=== PATIENT | male | born 1985 | race Caucasian/White ===

== ENCOUNTER 2021-06-14 16:40 | Inpatient (IN) ==
[2021-06-14] MEDS ORDERED: ALPRAZolam 0.5 MG TABLET PO ONE (20:12)
[2021-06-14 21:13] LABS: Basophils % 0.5 % (0.0-0.8); Eosinophils # 0.1 10*3/uL (0.0-0.87); Eosinophils % 1.4 % (0.00-10.9); Hematocrit 34.9 VOL% (42.0-52.0); Hemoglobin 11.6 GM/DL (14.0-18.0); Immature Granulocytes % 0.5 %; Immature Granulocytes Absolute 0.03 #; Lymphocytes # 1.5 10*3/uL (1.4-4.0); Lymphocytes % 26.7 % (21.2-54.2); Mean Corpuscular HGB Conc 33.2 GM/DL (32-36); Mean Corpuscular Volume 88.6 FL (87-102); Mean Platelet Volume 9.8 FL (9.6-12.0); Monocytes % 6.6 % (1.7-12.7); Neutrophils % 64.3 % (38.7-73.9); Platelet Count 278 T/CUMM (130-400); Red Blood Count 3.94 MC/CUMM (3.8-5.5); Red Cell Distribution Width 11.7 % (9.3-17.3); White Blood Count 5.8 T/CUMM (4-12)
[2021-06-14] MEDS ORDERED: VANCOMYCIN INJ 1,000 MG in SODIUM CHLORIDE 0.9% 250 ML IV STA (21:24)
[2021-06-14 21:35] LABS: Alanine Aminotransferase 99 U/L (16-61); Albumin 3.6 G/DL (3.4-5.0); Alkaline Phosphatase 137 U/L (45-117); Aspartate Amino Transferase 80 U/L (0-37); Bilirubin,Total < 0.39 MG/DL (0.20-1.00); Blood Urea Nitrogen 18 MG/DL (7-18); Calcium 9.3 MG/DL (8.5-10.1); Carbon Dioxide 30 MMOL/L (21-32); Estimated Glom Filtration Rate 90 ML/MIN; Glucose 158 MG/DL (74-106); Potassium 3.7 MMOL/L (3.5-5.1); Sodium 136 MMOL/L (136-145); Total Protein 8.7 G/DL (6.4-8.2)
[2021-06-14] MEDS ORDERED: SODIUM CHLORIDE 0.9% 2,000 ML IV STA (21:36)
[2021-06-14] MEDS ORDERED: SODIUM CHLORIDE 0.9% 500 ML IV STA (21:36)
[2021-06-14] MEDS ORDERED: GLUCAGON 1 MG VIAL IM PRN (21:54)
[2021-06-14] MEDS ORDERED: hydrALAZINE 20 MG/1 ML VIAL IV PRN (21:54)
[2021-06-14] MEDS ORDERED: ONDANSETRON 4 MG/2 ML VIAL IV PRN (21:54)
[2021-06-14] MEDS ORDERED: ACETAMINOPHEN 325 MG TABLET PO PRN (21:54)
[2021-06-14] MEDS ORDERED: PIPERACILLIN/TAZOBACTAM 3,375 MG in SODIUM CHLORIDE 0.9% 100 ML IV STA (21:54)
[2021-06-14] MEDS ORDERED: diphenhydrAMINE CAP 25 MG CAPSULE PO PRN (21:54)
[2021-06-14] MEDS ORDERED: DEXTROSE 50% 25 GM/50 ML SYRINGE IV PRN (21:54)
[2021-06-14] MEDS ORDERED: guaiFENesin/DM ER 600-30 MG TABLET PO PRN (21:54)
[2021-06-14] MEDS ORDERED: NICOTINE 21 MG/24 HR PATCH TRANSDERM PRN (21:54)
[2021-06-14] MEDS: SODIUM CHLORIDE 0.9% 1,000 ML IV SCH (23:53)
[2021-06-15] MEDS ORDERED: INSULIN LISPRO 100 UNIT/ML SUBCUT SCH
[2021-06-15] MEDS: ZALEPLON 5 MG CAPSULE PO PRN ×2 (00:38→21:41)
[2021-06-15 01:37] LABS: Basophils % 0.5 % (0.0-0.8); Eosinophils # 0.1 10*3/uL (0.0-0.87); Eosinophils % 1.5 % (0.00-10.9); Immature Granulocytes % 0.5 %; Immature Granulocytes Absolute 0.03 #; Mean Corpuscular HGB Conc 33.4 GM/DL (32-36); Mean Corpuscular Volume 89.1 FL (87-102); Mean Platelet Volume 9.6 FL (9.6-12.0); Monocytes % 6.8 % (1.7-12.7); Neutrophils % 53.7 % (38.7-73.9); Red Blood Count 3.29 MC/CUMM (3.8-5.5); Red Cell Distribution Width 11.7 % (9.3-17.3); White Blood Count 5.5 T/CUMM (4-12)
[2021-06-15 01:38] LABS: Hemoglobin 9.8 GM/DL (14.0-18.0); Platelet Count 191 T/CUMM (130-400)
[2021-06-15 01:39] LABS: Hematocrit 29.3 VOL% (42.0-52.0)
[2021-06-15 01:55] LABS: Calcium 8.2 MG/DL (8.5-10.1); Osmolality,Calculated 277.7 MOS/KG (273-304); Potassium 4.3 MMOL/L (3.5-5.1)
[2021-06-15 03:10] LABS: Hypochromasia 1+; Platelet Estimate Normal; Reactive Lymphocytes 1+
[2021-06-15 04:50] LABS: Atypical Lymphocytes Few; Reactive Lymphocytes 1+
[2021-06-15 04:51] LABS: Anisocytosis 1+; Hypochromasia 1+; Microcytosis 1+; Platelet Estimate Normal
[2021-06-15] MEDS: CLINDAMYCIN INJ 600 MG/50 ML PREMIX IV SCH ×2 (08:18→16:45)
[2021-06-15] MEDS ORDERED: DIAZEPAM 5 MG TABLET PO ONE (08:27)
[2021-06-15] MEDS: MORPHINE 2 MG/1 ML SYRINGE IV PRN ×2 (08:29→17:46)
[2021-06-15] MEDS: DOCUSATE SODIUM 100 MG CAPSULE PO SCH ×2 (10:26→21:41)
[2021-06-15] MEDS: INSULIN LISPRO 100 UNIT/ML SUBCUT SCH ×5 (10:26→21:41)
[2021-06-15] MEDS: PANTOPRAZOLE 40 MG TABLET PO SCH (10:27)
[2021-06-15] MEDS: HEPARIN 5,000 UNIT/1 ML VIAL SUBCUT SCH ×2 (10:27→21:41)
[2021-06-15] MEDS: VANCOMYCIN INJ 1,250 MG in SODIUM CHLORIDE 0.9% 250 ML IV SCH ×2 (10:33→21:43)
[2021-06-15] MEDS ORDERED: fentaNYL 100 MCG/2 ML VIAL ONE (14:00)
[2021-06-15] MEDS ORDERED: propofoL 200 MG/20 ML VIAL IV ONE (14:00)
[2021-06-15] MEDS ORDERED: LIDOCAINE 2% 5 ML VIAL ONE ×2 (14:00→14:42)
[2021-06-15] MEDS ORDERED: METOCLOPRAMIDE 10 MG/2 ML VIAL ONE (14:27)
[2021-06-15] MEDS ORDERED: ONDANSETRON 4 MG/2 ML VIAL IV PRN (15:22)
[2021-06-15] MEDS ORDERED: HYDROmorphone 2 MG/1 ML VIAL ONE (15:23)
[2021-06-15] MEDS ORDERED: ONDANSETRON 4 MG/2 ML VIAL ONE (15:23)
[2021-06-15] MEDS: HYDROmorphone 2 MG/1 ML VIAL IV PRN ×2 (15:25→15:36)
[2021-06-15] MEDS ORDERED: DEXTROSE 50% 25 GM/50 ML VIAL IV PRN (16:46)
[2021-06-15] MEDS ORDERED: GLUCAGON 1 MG VIAL IM PRN (16:46)
[2021-06-15] MEDS: SODIUM CHLORIDE 0.9% 1,000 ML IV SCH (23:00)
[2021-06-16] MEDS: CLINDAMYCIN INJ 600 MG/50 ML PREMIX IV SCH ×2 (00:49→06:00)
[2021-06-16] MEDS: MORPHINE 2 MG/1 ML SYRINGE IV PRN ×3 (00:50→10:08)
[2021-06-16 06:12] LABS: Basophils % 0.6 % (0.0-0.8); Eosinophils # 0.1 10*3/uL (0.0-0.87); Eosinophils % 1.9 % (0.00-10.9); Hematocrit 28.8 VOL% (42.0-52.0); Hemoglobin 9.2 GM/DL (14.0-18.0); Immature Granulocytes % 0.8 %; Immature Granulocytes Absolute 0.04 #; Lymphocytes # 2.1 10*3/uL (1.4-4.0); Lymphocytes % 40.4 % (21.2-54.2); Mean Corpuscular HGB Conc 31.9 GM/DL (32-36); Mean Corpuscular Volume 91.1 FL (87-102); Mean Platelet Volume 10.4 FL (9.6-12.0); Monocytes % 8.4 % (1.7-12.7); Neutrophils % 47.9 % (38.7-73.9); Platelet Count 199 T/CUMM (130-400); Red Blood Count 3.16 MC/CUMM (3.8-5.5); Red Cell Distribution Width 11.7 % (9.3-17.3); White Blood Count 5.2 T/CUMM (4-12)
[2021-06-16 06:23] LABS: Calcium 8.1 MG/DL (8.5-10.1); Osmolality,Calculated 276.8 MOS/KG (273-304); Potassium 4.7 MMOL/L (3.5-5.1)
[2021-06-16] MEDS: SODIUM CHLORIDE 0.9% 1,000 ML IV SCH (06:29)
[2021-06-16] MEDS: HEPARIN 5,000 UNIT/1 ML VIAL SUBCUT SCH (09:18)
[2021-06-16] MEDS: INSULIN LISPRO 100 UNIT/ML SUBCUT SCH ×2 (09:19→12:58)
[2021-06-16] MEDS: DOCUSATE SODIUM 100 MG CAPSULE PO SCH (09:19)
[2021-06-16] MEDS: PANTOPRAZOLE 40 MG TABLET PO SCH (09:19)
[2021-06-16] MEDS: VANCOMYCIN INJ 1,250 MG in SODIUM CHLORIDE 0.9% 250 ML IV SCH (09:19)
[2021-06-16] MEDS ORDERED: PIPERACILLIN/TAZOBACTAM 3,375 MG in SODIUM CHLORIDE 0.9% 100 ML IV SCH (10:00)
[2021-06-16 12:34] VITALS: BP 121/76
== END 2021-06-16 13:50 | disposition home or self-care (01) | DRG 623 ==
LOC: N.ED 16:40 → N.EDINP 21:54 → N.3E 23:36
PROVIDERS: ADMIT Internal Medicine; ATTEND Internal Medicine